=== PATIENT | female | born 1990 | race Two or more races ===

== ENCOUNTER 2018-07-01 15:51 | Emergency (ER) | payer OTHER ==
[~2018-07-01] VITALS: Ht 174 cm; Wt 79.4 kg
[2018-07-01 16:06] VITALS: BP 105/53
== END 2018-07-01 18:30 | disposition home or self-care (01) ==
LOC: ER 15:51
DX: L30.9 Dermatitis, unspecified (principal); K12.1 Other forms of stomatitis; Z98.890 Other specified postprocedural states
CPT/HCPCS: 87210; 99283; A4606; A6402; Z7610

== ENCOUNTER 2018-11-19 15:39 | Emergency (ER) | payer OTHER ==
[~2018-11-19] VITALS: Ht 172.7 cm; Wt 85.3 kg
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
--- NOTE | 2018-11-19 16:05 | NUR ---
SCHUYLER GANN AT BEDSIDE
[2018-11-19] MEDS ORDERED: LIDOCAINE 1%-EPI 1:100,000 20 ML VIAL ONE (16:18)
[2018-11-19] MEDS ORDERED: TDAP [DIPH/PERTUSSIS/TET] 0.5 ML VIAL IM ONE (16:19)
[2018-11-19] MEDS: TDAP [DIPH/PERTUSSIS/TET] 0.5 ML VIAL IM ONE (16:25)
[2018-11-19] MEDS: LIDOCAINE 1%-EPI 1:100,000 20 ML VIAL TP ONE (16:25)
--- NOTE | 2018-11-19 16:30 | NUR ---
SCHUYLER GANN AT BEDSIDE FOR SUTURING
--- NOTE | 2018-11-19 17:11 | NUR ---
Patient discharged to home in stable condition. Written and verbal after care instructions given. Patient verbalizes understanding of instruction.
[2018-11-19 17:12] VITALS: BP 128/71
== END 2018-11-19 17:12 | disposition home or self-care (01) ==
LOC: ER 15:39
DX: S01.112A Laceration without foreign body of left eyelid and periocular area, initial encounter (principal); F10.10 Alcohol abuse, uncomplicated; Y90.9 Presence of alcohol in blood, level not specified; Z98.890 Other specified postprocedural states; Y04.8XXA Assault by other bodily force, initial encounter; Y93.89 Activity, other specified; Y92.002 Bathroom of unspecified non-institutional (private) residence as the place of occurrence of the external cause; Y99.8 Other external cause status
CPT/HCPCS: 12011; 90471; 90715; 99283; A6403; J3490

== ENCOUNTER 2018-11-23 15:50 | Emergency (ER) | payer OTHER ==
[~2018-11-23] VITALS: Ht 172.7 cm; Wt 85.3 kg
[2018-11-23 16:08] VITALS: BP 109/67
== END 2018-11-23 16:42 | disposition home or self-care (01) ==
LOC: ER 15:51
DX: S01.112D Laceration without foreign body of left eyelid and periocular area, subsequent encounter (principal); Z98.890 Other specified postprocedural states; X58.XXXD Exposure to other specified factors, subsequent encounter

== ENCOUNTER 2018-11-28 20:50 | Emergency (ER) | payer OTHER ==
[~2018-11-28] VITALS: Ht 172.7 cm; Wt 85.3 kg
[2018-11-28 21:03] VITALS: BP 111/71
--- NOTE | 2018-11-28 21:29 | NUR ---
Patient discharged to home in stable condition. Written and verbal after care instructions given. Patient verbalizes understanding of instruction. Pt ambulatory with a steady gait
== END 2018-11-28 21:30 | disposition home or self-care (01) ==
LOC: ER 20:54
DX: S01.112D Laceration without foreign body of left eyelid and periocular area, subsequent encounter (principal); Z98.890 Other specified postprocedural states; X58.XXXD Exposure to other specified factors, subsequent encounter
CPT/HCPCS: Z7502